=== PATIENT | female | born 1945 ===

== ENCOUNTER → 2018-07-29 13:09 | Outpatient (REF) | payer MEDICARE, SELFPAY ==
[2018-07-29 13:51] LABS: INR 2.4 (0.9-1.3); Prothrombin Time 27.9 SECONDS (10.1-12.7)
== END ==
LOC: LAB 13:09
PROVIDERS: Visit Provider Internal Medicine Cardiovascular Disease
DX: Z51.81 Encounter for therapeutic drug level monitoring (principal); G45.9 Transient cerebral ischemic attack, unspecified
CPT/HCPCS: 85610

== ENCOUNTER → 2018-08-16 18:58 | Outpatient (REF) | payer MEDICARE, SELFPAY ==
[2018-08-16 19:17] LABS: INR 2.5 (0.9-1.3); Prothrombin Time 29.2 SECONDS (10.1-12.7)
== END ==
LOC: LAB 18:58
PROVIDERS: Visit Provider Internal Medicine Cardiovascular Disease
DX: Z51.81 Encounter for therapeutic drug level monitoring (principal); G45.9 Transient cerebral ischemic attack, unspecified
CPT/HCPCS: 85610